=== PATIENT | female | born 2000 | race Caucasian/White ===

== ENCOUNTER 2020-11-12 20:29 | Emergency (ER) | payer OTHER ==
[~2020-11-12] VITALS: Ht 165.1 cm; Wt 81.8 kg
[2020-11-12 21:06] VITALS: TEMP 97.3
[2020-11-12 23:46] VITALS: BP 118/71; PULSE 91
== END 2020-11-12 23:46 | disposition home or self-care (01) ==
LOC: COL.ER 20:29
DX: S02.2XXA Fracture of nasal bones, initial encounter for closed fracture (principal); S01.511A Laceration without foreign body of lip, initial encounter; V00.831A Fall from motorized mobility scooter, initial encounter; Y93.55 Activity, bike riding